=== PATIENT | female | born 1940 | race Asian ===

== ENCOUNTER 2017-07-07 15:13 | Emergency (ER) | payer MEDICARE, MEDICAID ==
[~2017-07-07] VITALS: Ht 154.9 cm; Wt 45.9 kg
[2017-07-07] MEDS ORDERED: VALS80TA2 PO (15:15)
[2017-07-07] MEDS ORDERED: ATOR40TA28 PO (15:15)
[2017-07-07] MEDS ORDERED: ASPI81TA39 PO (15:15)
[2017-07-07 16:20] VITALS: BP 156/91
== END 2017-07-07 17:56 | disposition home or self-care (01) ==
LOC: EMS 15:18
DX: S01.511A Laceration without foreign body of lip, initial encounter (principal); S16.1XXA Strain of muscle, fascia and tendon at neck level, initial encounter; S20.219A Contusion of unspecified front wall of thorax, initial encounter; E78.00 Pure hypercholesterolemia, unspecified; I10 Essential (primary) hypertension; V49.59XA Passenger injured in collision with other motor vehicles in traffic accident, initial encounter; Y93.89 Activity, other specified; Y92.89 Other specified places as the place of occurrence of the external cause; Y99.8 Other external cause status
CPT/HCPCS: 71120; 72040; 93005; 99284

== ENCOUNTER 2019-12-17 11:30 | Inpatient (IN) | payer MEDICARE, MEDICAID ==
[~2019-12-17] VITALS: Ht 157.5 cm; Wt 49.2 kg
[~2019-12-17 11:30] MED LIST: ASPI81TA39 PO; ATOR40TA28 PO; VALS80TA2 PO
[2019-12-17] MEDS ORDERED: AMLO5TAB9 PO (11:43)
[2019-12-17] MEDS ORDERED: SULF1TAB42 PO (11:43)
[2019-12-17 11:58] LABS: BASOPHILS % (AUTO) 0.3 % (0.0-2.0); EOSINOPHILS % (AUTO) 0.5 % (1.0-6.0); HEMATOCRIT 37.3 % (36-46); HEMOGLOBIN 12.9 g/dL (12.0-16.0); LYMPHOCYTES # (AUTO) 0.5 K/uL (1.0-4.8); LYMPHOCYTES % (AUTO) 8.5 % (22.0-44.0); MEAN CORPUSCULAR HEMOGLOBIN 29.7 pg (26.0-34.0); MEAN CORPUSCULAR HGB CONC 34.5 G/dL (31.0-37.0); MEAN CORPUSCULAR VOLUME 86 fL (80-100); MONOCYTES # (AUTO) 0.4 K/uL (0.1-1.0); MONOCYTES % (AUTO) 6.5 % (2.0-9.0); NEUTROPHILS # (AUTO) 5.1 K/uL (1.8-7.7); NEUTROPHILS % (AUTO) 84.2 % (40.0-70.0); PLATELET COUNT (AUTO) 289 K/uL (150-450); RED BLOOD CELL COUNT(AUTO) 4.33 MIL/uL (4.00-5.20); RED CELL DISTRIBUTION WIDTH 12.4 % (11.5-14.5)
[2019-12-17 12:14] LABS: ALBUMIN 3.7 g/dL (3.4-5.0); BILIRUBIN,TOTAL 0.2 mg/dL (0.1-1.0); CALCIUM, TOTAL 8.9 mg/dL (8.8-10.5); CREATININE 1.04 mg/dL (0.60-1.30); POTASSIUM 4.4 mmol/L (3.5-5.1); TOTAL PROTEIN, SERUM 8.3 g/dL (6.4-8.2)
[2019-12-17] MEDS ORDERED: SODIUM CHLORIDE 0.9% 1,000 ML ONE (12:29)
[2019-12-17] MEDS ORDERED: ACETAMINOPHEN 325 MG TABLET PO PRN ×2 (13:00→19:30)
[2019-12-17] MEDS ORDERED: ONDANSETRON HCL 4 MG/2 ML VIAL IVP PRN ×2 (13:00→19:30)
[2019-12-17] MEDS ORDERED: VALS160T2 PO (13:05)
[2019-12-17] MEDS ORDERED: ATOR20TA86 PO (13:05)
[2019-12-17] MEDS ORDERED: CARBXR100 PO (13:05)
[2019-12-17] MEDS ORDERED: SODIUM CHLORIDE 0.9% 1,000 ML IV ONE (13:15)
[2019-12-17 13:52] LABS: CALCIUM, TOTAL 8.8 mg/dL (8.8-10.5); CREATININE 0.96 mg/dL (0.60-1.30); POTASSIUM 5.9 mmol/L (3.5-5.1)
[2019-12-17 14:24] LABS: APPEARANCE,URINE CLEAR (CLEAR); BILIRUBIN,URINE NEGATIVE (NEGATIVE); GLUCOSE, URINE (UA) NEGATIVE (NEGATIVE); KETONES,URINE NEGATIVE (NEGATIVE); LEUKOCYTE ESTERASE ,URINE SMALL (NEGATIVE); NITRATE,URINE NEGATIVE (NEGATIVE); OCCULT BLOOD,URINE TRACE (NEGATIVE); PROTEIN,URINE NEGATIVE (NEGATIVE); UROBILINOGEN,URINE 0.2 mg/dL (<=1.0)
[2019-12-17 14:26] LABS: CREATININE,URINE RANDOM 22.3 mg/dL (30.0-125.0)
[2019-12-17 14:34] LABS: BACTERIA,URINE None Seen /HPF (None Seen); RBC,URINE 0-2 /HPF (0-2); SQUAMOUS EPITHELIAL CELL,UR Few /LPF (None Seen)
[2019-12-17] MEDS ORDERED: SODIUM CHLORIDE 3% 500 ML IV ONE (15:15)
[2019-12-17] MEDS ORDERED: SODIUM ZIRCONIUM CYCLOSILICATE 5 GM POWDER PACKET PO ONE (15:15)
[2019-12-17 16:00] VITALS: BP 151/75
[2019-12-17] MEDS ORDERED: INFLUENZA VIRUS VACCINE QVS 2019-20 (3YR+)/PF 60 MCG/0.5 ML SYRINGE IM ONE (17:45)
[2019-12-17] MEDS ORDERED: DEXTROSE 5%-0.45% SODIUM CHL 1,000 ML IV SCH (18:15)
[2019-12-17] MEDS ORDERED: 0.9% SODIUM CHLORIDE 10 ML SYRINGE IVP PRN (19:30)
[2019-12-17] MEDS: VALSARTAN 160 MG TABLET PO SCH (19:30)
[2019-12-17] MEDS ORDERED: MAGNESIUM HYDROXIDE SUSPENSION 30 ML UDCUP PO PRN (19:30)
[2019-12-17] MEDS ORDERED: OxyCODONE HCL/ACETAMINOPHEN 5-325 MG TABLET PO PRN ×2 (19:30)
[2019-12-17] MEDS: AmLODIPine BESYLATE 5 MG TABLET PO SCH (19:59)
[2019-12-17 20:00] VITALS: BP 140/74
[2019-12-17] MEDS: ASPIRIN 81 MG CHEWABLE TABLET PO SCH (20:00)
[2019-12-17] MEDS: ATORVASTATIN CALCIUM 20 MG TABLET PO SCH (20:00)
[2019-12-17] MEDS: CarBAMazepine 100 MG ER TABLET PO SCH (21:00)
[2019-12-17] MEDS: CefTRIAXone 1 GM/DEXTROSE 50 ML IV SCH (21:10)
[2019-12-17] MEDS: DOCUSATE SODIUM 100 MG CAPSULE PO SCH (21:10)
[2019-12-17] MEDS ORDERED: DEXTROSE 5%-WATER 1,000 ML IV SCH (21:45)
[2019-12-18] VITALS: BP 116/63
[2019-12-18 05:10] LABS: BASOPHILS % (AUTO) 0.7 % (0.0-2.0); EOSINOPHILS % (AUTO) 1.6 % (1.0-6.0); HEMATOCRIT 34.1 % (36-46); HEMOGLOBIN 11.3 g/dL (12.0-16.0); LYMPHOCYTES # (AUTO) 0.8 K/uL (1.0-4.8); LYMPHOCYTES % (AUTO) 16.6 % (22.0-44.0); MEAN CORPUSCULAR HEMOGLOBIN 29.1 pg (26.0-34.0); MEAN CORPUSCULAR HGB CONC 33.3 G/dL (31.0-37.0); MEAN CORPUSCULAR VOLUME 88 fL (80-100); MONOCYTES # (AUTO) 0.6 K/uL (0.1-1.0); MONOCYTES % (AUTO) 12.8 % (2.0-9.0); NEUTROPHILS # (AUTO) 3.3 K/uL (1.8-7.7); NEUTROPHILS % (AUTO) 68.3 % (40.0-70.0); PLATELET COUNT (AUTO) 271 K/uL (150-450); RED BLOOD CELL COUNT(AUTO) 3.89 MIL/uL (4.00-5.20); RED CELL DISTRIBUTION WIDTH 12.6 % (11.5-14.5)
[2019-12-18 05:23] LABS: CALCIUM, TOTAL 8.4 mg/dL (8.8-10.5); CREATININE 1.14 mg/dL (0.60-1.30); POTASSIUM 3.9 mmol/L (3.5-5.1)
[2019-12-18 08:00] VITALS: BP 116/72
[2019-12-18] MEDS: ATORVASTATIN CALCIUM 20 MG TABLET PO SCH (08:51)
[2019-12-18] MEDS: CarBAMazepine 100 MG ER TABLET PO SCH (08:51)
[2019-12-18] MEDS: ASPIRIN 81 MG CHEWABLE TABLET PO SCH (08:51)
[2019-12-18] MEDS: DOCUSATE SODIUM 100 MG CAPSULE PO SCH ×2 (08:51→20:32)
[2019-12-18] MEDS: AmLODIPine BESYLATE 5 MG TABLET PO SCH (08:52)
[2019-12-18] MEDS: VALSARTAN 160 MG TABLET PO SCH (09:00)
[2019-12-18] MEDS ORDERED: SODIUM CHLORIDE 0.45% 1,000 ML IV ONE (10:00)
[2019-12-18] MEDS ORDERED: DEXTROSE 5%-WATER 1,000 ML IV SCH (10:15)
[2019-12-18 12:00] VITALS: BP 111/62
[2019-12-18 16:00] VITALS: BP 110/66
[2019-12-18 20:00] VITALS: BP 115/62
[2019-12-18] MEDS ORDERED: SODIUM CHLORIDE 0.9% 1,000 ML IV SCH (20:00)
[2019-12-18] MEDS: CefTRIAXone 1 GM/DEXTROSE 50 ML IV SCH (20:32)
[2019-12-18 23:49] LABS: OSMOLALITY,URINE 203 mOS/kg (50-1200)
[2019-12-19] VITALS: BP 90/33
[2019-12-19 00:13] LABS: SODIUM,URINE RANDOM 28 mmol/l (20-110)
[2019-12-19 04:00] VITALS: BP 101/41
[2019-12-19 07:13] VITALS: BP 139/73
[2019-12-19] MEDS: CarBAMazepine 100 MG ER TABLET PO SCH ×2 (08:00→12:39)
[2019-12-19] MEDS: DOCUSATE SODIUM 100 MG CAPSULE PO SCH ×2 (09:15→21:32)
[2019-12-19] MEDS: ASPIRIN 81 MG CHEWABLE TABLET PO SCH (09:15)
[2019-12-19] MEDS: VALSARTAN 160 MG TABLET PO SCH (09:15)
[2019-12-19] MEDS: ATORVASTATIN CALCIUM 20 MG TABLET PO SCH (09:16)
[2019-12-19] MEDS: AmLODIPine BESYLATE 5 MG TABLET PO SCH (09:16)
[2019-12-19 11:47] VITALS: BP 126/66
[2019-12-19 16:30] VITALS: BP 145/72
[2019-12-19] MEDS ORDERED: SODIUM CHLORIDE 1 GM TABLET PO ONE (16:45)
[2019-12-19 20:30] VITALS: BP 136/87
[2019-12-19] MEDS: CefTRIAXone 1 GM/DEXTROSE 50 ML IV SCH (21:33)
[2019-12-20 00:21] VITALS: BP 121/65
[2019-12-20 05:32] VITALS: BP 129/66
[2019-12-20 07:19] VITALS: BP 130/77
[2019-12-20] MEDS: SODIUM CHLORIDE 1 GM TABLET PO SCH ×2 (08:37→16:46)
[2019-12-20] MEDS: VALSARTAN 160 MG TABLET PO SCH (08:37)
[2019-12-20] MEDS: DOCUSATE SODIUM 100 MG CAPSULE PO SCH (08:37)
[2019-12-20] MEDS: ATORVASTATIN CALCIUM 20 MG TABLET PO SCH (08:38)
[2019-12-20] MEDS: AmLODIPine BESYLATE 5 MG TABLET PO SCH (08:38)
[2019-12-20] MEDS: ASPIRIN 81 MG CHEWABLE TABLET PO SCH (08:38)
[2019-12-20 10:59] VITALS: BP 116/72
[2019-12-20 15:38] VITALS: BP 126/68
== END 2019-12-20 20:55 | disposition home or self-care (01) | DRG 640 ==
LOC: EMS 11:31 → ICU 15:34 → ICUN 12-18 19:15 → 5S 12-19 06:58
PROVIDERS: ADMIT Internal Medicine; ATTEND Internal Medicine
DX: E87.1 Hypo-osmolality and hyponatremia (principal); E43 Unspecified severe protein-calorie malnutrition; N39.0 Urinary tract infection, site not specified; Z68.1 Body mass index [BMI] 19.9 or less, adult; E87.6 Hypokalemia; E87.5 Hyperkalemia; E78.00 Pure hypercholesterolemia, unspecified; I10 Essential (primary) hypertension; E78.5 Hyperlipidemia, unspecified; R63.0 Anorexia; R53.83 Other fatigue; E86.9 Volume depletion, unspecified; Z87.442 Personal history of urinary calculi; Z80.1 Family history of malignant neoplasm of trachea, bronchus and lung; Z28.21 Immunization not carried out because of patient refusal
CPT/HCPCS: 76770; 82570; 83930; 83935; 84295; 84300; 87081; 87086; 93005; 96365; 97162; 97165; 97530; 97535; 99291; G0378; J0696; J7030; J7060

== ENCOUNTER 2024-04-24 09:18 | Emergency (ER) | payer OTHER, MEDICAID ==
[~2024-04-24] VITALS: Ht 157.5 cm; Wt 43.6 kg
[~2024-04-24 09:18] MED LIST changes: +AMLO-257 PO; +ATOR20TA PO; -ATOR40TA28 PO; +CARB100T60 PO; +SULF1TAB42 PO; +VALS160T2 PO; -VALS80TA2 PO
[2024-04-24 09:25] VITALS: BP 135/73; PULSE 86; RESP 16; TEMP 97.9
[2024-04-24] MEDS: METHOCARBAMOL 500 MG TABLET PO ONE (10:00)
[2024-04-24] MEDS: KETOROLAC TROMETHAMINE 30 MG/ML VIAL IM ONE (10:00)
[2024-04-24] MEDS: LIDOCAINE 5% TRANSDERMAL PATCH TD ONE (10:00)
[2024-04-24 10:03] LABS: APPEARANCE,URINE CLEAR (CLEAR); BILIRUBIN,URINE NEGATIVE (NEGATIVE); COLOR,URINE LIGHT YELLOW (YELLOW); GLUCOSE, URINE (UA) NEGATIVE (NEGATIVE); KETONES,URINE NEGATIVE (NEGATIVE); LEUKOCYTE ESTERASE ,URINE SMALL (NEGATIVE); NITRATE,URINE NEGATIVE (NEGATIVE); OCCULT BLOOD,URINE NEGATIVE (NEGATIVE); PH,URINE 6.5 (5.0-8.0); PROTEIN,URINE NEGATIVE (NEGATIVE); SPECIFIC GRAVITIY, URINE 1.012 (1.003-1.030); UROBILINOGEN,URINE <=1.0 mg/dL (<=1.0)
[2024-04-24 10:08] LABS: RBC,URINE None Seen /HPF (0-2)
[2024-04-24 10:09] LABS: BACTERIA,URINE Few /HPF (None Seen); RENAL EPITHELIAL CELLS,URINE Few /LPF (None Seen)
[2024-04-24 10:10] LABS: HYALINE CASTS, URINE 0-2 /LPF (None Seen); SQUAMOUS EPITHELIAL CELL,UR Rare /LPF (None Seen)
[2024-04-24] MEDS ORDERED: METH-659 PO (10:22)
[2024-04-24] MEDS ORDERED: IBUP-1492 PO (10:23)
[2024-04-24] MEDS ORDERED: LIDO700A15 TP (10:24)
[2024-04-25] MEDS ORDERED: MAGN250T9 PO (11:44)
[2024-04-25] MEDS ORDERED: FINE10TA PO (11:44)
[2024-04-25] MEDS ORDERED: ALLO100T PO (11:44)
[2024-04-25] MEDS ORDERED: ALEN70TA80 PO (12:15)
[2024-04-25] MEDS ORDERED: CHOL100062 PO (12:15)
[2024-04-25] MEDS ORDERED: GABA-1181 PO (12:15)
[2024-04-25] MEDS ORDERED: ASPI-1522 PO (12:15)
== END 2024-04-24 10:44 | disposition home or self-care (01) ==
LOC: EMS 09:18
DX: M53.3 Sacrococcygeal disorders, not elsewhere classified (principal); E78.00 Pure hypercholesterolemia, unspecified; I10 Essential (primary) hypertension
CPT/HCPCS: 99283; 81001; 96372; J1885

== ENCOUNTER 2024-04-25 07:10 | Inpatient (IN) | payer OTHER, MEDICAID ==
[~2024-04-25] VITALS: Ht 149.9 cm; Wt 40.5 kg
[~2024-04-25 07:10] MED LIST changes: +IBUP-1492 PO; +LIDO700A15 TP; +METH-659 PO
[2024-04-25] MEDS: ONDANSETRON HCL 4 MG/2 ML VIAL IVP ONE (07:58)
[2024-04-25] MEDS: SODIUM CHLORIDE 0.9% 1,000 ML IV ONE (07:58)
[2024-04-25 08:07] LABS: BASOPHILS % (AUTO) 0.1 % (0.0-2.0); EOSINOPHILS % (AUTO) 0.1 % (1.0-6.0); HEMATOCRIT 39.2 % (36-46); HEMOGLOBIN 13.3 g/dL (12.0-16.0); LYMPHOCYTES # (AUTO) 0.3 K/uL (1.0-4.8); LYMPHOCYTES % (AUTO) 5.2 % (22.0-44.0); MEAN CORPUSCULAR HEMOGLOBIN 29.6 pg (26.0-34.0); MEAN CORPUSCULAR HGB CONC 33.9 G/dL (31.0-37.0); MEAN CORPUSCULAR VOLUME 87 fL (80-100); MONOCYTES # (AUTO) 0.4 K/uL (0.1-1.0); MONOCYTES % (AUTO) 6.8 % (2.0-9.0); NEUTROPHILS # (AUTO) 5.6 K/uL (1.8-7.7); PLATELET COUNT (AUTO) 287 K/uL (150-450); RED BLOOD CELL COUNT(AUTO) 4.49 MIL/uL (4.00-5.20); WHITE BLOOD COUNT (AUTO) 6.3 K/uL (4.5-11.0)
[2024-04-25 08:13] LABS: CALCIUM, TOTAL 9.5 mg/dL (8.8-10.5); CREATININE 0.9 mg/dL (0.60-1.30); NEUTROPHILS % (AUTO) 87.8 % (40.0-70.0)
[2024-04-25 08:46] LABS: TROPONIN I-HIGH SENSITIVITY 13 ng/L (<51)
[2024-04-25 09:26] LABS: COVID AG,FIA SOURCE NASAL SWAB
[2024-04-25 09:47] LABS: SODIUM,URINE RANDOM 67 mmol/l (20-110)
[2024-04-25 09:55] LABS: SARS-COV2 (COVID) ANTIGEN,FIA Negative (Negative)
[2024-04-25 10:20] LABS: OSMOLALITY,URINE 318 mOsm/kg (50-1500)
[2024-04-25 11:17] LABS: ANION GAP 11 mmol/L (8-16); CALCIUM, TOTAL 9.2 mg/dL (8.8-10.5); CARBON DIOXIDE 22 mmol/L (22-29); CHLORIDE 81 mmol/L (98-107); CREATININE 0.89 mg/dL (0.60-1.30); GLOMERULAR FILTR. RATE CALC > 60 mL/min (>60); GLUCOSE,RANDOM 112 mg/dL (70-110); POTASSIUM 4.1 mmol/L (3.5-5.1); UREA NITROGEN, BLOOD 14 mg/dL (7-18)
[2024-04-25 11:32] LABS: SODIUM SERUM 114 mmol/L (136-145)
[2024-04-25] MEDS ORDERED: MAGN250T9 PO (11:44)
[2024-04-25] MEDS ORDERED: FINE10TA PO (11:44)
[2024-04-25] MEDS ORDERED: ALLO100T PO (11:44)
[2024-04-25] MEDS ORDERED: ALEN70TA80 PO (12:15)
[2024-04-25] MEDS ORDERED: CHOL100062 PO (12:15)
[2024-04-25] MEDS ORDERED: GABA-1181 PO (12:15)
[2024-04-25] MEDS ORDERED: ASPI-1522 PO (12:15)
[2024-04-25] MEDS: SODIUM CHLORIDE 3% 500 ML IV SCH (12:20)
[2024-04-25] MEDS: ACETAMINOPHEN 325 MG TABLET PO ONE (14:04)
[2024-04-25 14:13] LABS: APPEARANCE,URINE CLEAR (CLEAR); BILIRUBIN,URINE NEGATIVE (NEGATIVE); COLOR,URINE COLORLESS (YELLOW); GLUCOSE, URINE (UA) NEGATIVE (NEGATIVE); KETONES,URINE NEGATIVE (NEGATIVE); LEUKOCYTE ESTERASE ,URINE NEGATIVE (NEGATIVE); NITRATE,URINE NEGATIVE (NEGATIVE); OCCULT BLOOD,URINE NEGATIVE (NEGATIVE); PROTEIN,URINE NEGATIVE (NEGATIVE); SPECIFIC GRAVITIY, URINE 1.009 (1.003-1.030); UROBILINOGEN,URINE <=1.0 mg/dL (<=1.0)
[2024-04-25 14:24] LABS: BACTERIA,URINE None Seen /HPF (None Seen); RBC,URINE None Seen /HPF (0-2); SQUAMOUS EPITHELIAL CELL,UR None Seen /LPF (None Seen); WBC,URINE None Seen /HPF (0-5)
[2024-04-25] MEDS: CefTRIAXone 1 GM/DEXTROSE 50 ML IV SCH (19:37)
[2024-04-25] MEDS: MAGNESIUM OXIDE 400 MG TABLET PO SCH (20:07)
[2024-04-25 21:05] VITALS: BP 141/80; PULSE 74; RESP 18; TEMP 98.2
[2024-04-25 21:15] VITALS: PULSE 77
[2024-04-25 21:46] LABS: SODIUM,URINE RANDOM 19 mmol/l (20-110)
[2024-04-25 22:10] LABS: OSMOLALITY,URINE 213 mOsm/kg (50-1500)
[2024-04-25] MEDS: ETHYL ALCOHOL 62% ANTISEPTIC NASAL SANITIZER 0.6 ML AMPUL NASAL SCH (22:16)
[2024-04-25] MEDS: SODIUM CHLORIDE 3% 500 ML IV ONE (22:16)
[2024-04-25] MEDS: CarBAMazepine 100 MG ER TABLET PO SCH (23:36)
[2024-04-25] MEDS: METHOCARBAMOL 500 MG TABLET PO SCH (23:41)
[2024-04-26] VITALS: BP 145/75; PULSE 69; PULSE 74; RESP 17; TEMP 98
[2024-04-26 04:00] VITALS: BP 131/69; PULSE 81; RESP 17; TEMP 98.2
[2024-04-26 08:00] VITALS: BP 129/70; PULSE 78; RESP 22; TEMP 98.3
[2024-04-26] MEDS: ALLOPURINOL 100 MG TABLET PO SCH (08:08)
[2024-04-26] MEDS: AmLODIPine BESYLATE 5 MG TABLET PO SCH (08:09)
[2024-04-26] MEDS: ATORVASTATIN CALCIUM 20 MG TABLET PO SCH (08:09)
[2024-04-26] MEDS: CHOLECALCIFEROL (VIT D3) 1,000 UNITS [25 MCG] TABLET PO SCH (08:09)
[2024-04-26] MEDS: GABAPENTIN 300 MG CAPSULE PO SCH (08:09)
[2024-04-26] MEDS: ASPIRIN 81 MG DR TABLET PO SCH (08:09)
[2024-04-26] MEDS: VALSARTAN 160 MG TABLET PO SCH (08:09)
[2024-04-26 08:19] LABS: ANION GAP 10 mmol/L (8-16); CALCIUM, TOTAL 9.4 mg/dL (8.8-10.5); CARBON DIOXIDE 24 mmol/L (22-29); CHLORIDE 88 mmol/L (98-107); CREATININE 0.88 mg/dL (0.60-1.30); GLOMERULAR FILTR. RATE CALC > 60 mL/min (>60); GLUCOSE,RANDOM 93 mg/dL (70-110); PHOSPHORUS 3.8 mg/dL (2.5-4.9); POTASSIUM 4.1 mmol/L (3.5-5.1); UREA NITROGEN, BLOOD 22 mg/dL (7-18)
[2024-04-26 08:28] LABS: SODIUM SERUM 122 mmol/L (136-145)
[2024-04-26] MEDS: SODIUM CHLORIDE 3% 500 ML IV SCH (10:09)
[2024-04-26 12:00] VITALS: BP 128/75; PULSE 75; RESP 17; TEMP 98.4
[2024-04-26 16:00] VITALS: BP 102/54; PULSE 82; RESP 29; TEMP 98
[2024-04-26] MEDS ORDERED: DiphenhydrAMINE HCL 25 MG CAPSULE PO PRN (16:30)
[2024-04-26] MEDS: SODIUM CHLORIDE 3% 500 ML IV ONE (17:29)
[2024-04-26 20:00] VITALS: BP 118/68; PULSE 78; RESP 20; TEMP 98.4
[2024-04-26] MEDS ORDERED: SODIUM CHLORIDE 0.9% 250 ML IV ONE (20:14)
[2024-04-27] VITALS (7 sets, daily range): BP systolic 125–162; BP diastolic 31–96; PULSE 71–84; RESP 16–22; TEMP 97.8–98.7
[2024-04-27 05:59] LABS: BASOPHILS % (AUTO) 0.4 % (0.0-2.0); EOSINOPHILS % (AUTO) 0.7 % (1.0-6.0); HEMATOCRIT 37.3 % (36-46); HEMOGLOBIN 12.3 g/dL (12.0-16.0); LYMPHOCYTES # (AUTO) 0.6 K/uL (1.0-4.8); LYMPHOCYTES % (AUTO) 9.8 % (22.0-44.0); MEAN CORPUSCULAR HEMOGLOBIN 29.5 pg (26.0-34.0); MEAN CORPUSCULAR VOLUME 89 fL (80-100); MONOCYTES # (AUTO) 0.8 K/uL (0.1-1.0); NEUTROPHILS # (AUTO) 4.7 K/uL (1.8-7.7); NEUTROPHILS % (AUTO) 76.1 % (40.0-70.0); PLATELET COUNT (AUTO) 273 K/uL (150-450); RED BLOOD CELL COUNT(AUTO) 4.18 MIL/uL (4.00-5.20); RED CELL DISTRIBUTION WIDTH 13.1 % (11.5-14.5); WHITE BLOOD COUNT (AUTO) 6.2 K/uL (4.5-11.0)
[2024-04-27 06:12] LABS: ANION GAP 8 mmol/L (8-16); CALCIUM, TOTAL 8.8 mg/dL (8.8-10.5); CARBON DIOXIDE 27 mmol/L (22-29); CHLORIDE 94 mmol/L (98-107); CREATININE 0.86 mg/dL (0.60-1.30); GLOMERULAR FILTR. RATE CALC > 60 mL/min (>60); GLUCOSE,RANDOM 98 mg/dL (70-110); POTASSIUM 3.9 mmol/L (3.5-5.1); SODIUM SERUM 129 mmol/L (136-145); UREA NITROGEN, BLOOD 21 mg/dL (7-18)
[2024-04-27] MEDS: SODIUM CHLORIDE 1 GM TABLET PO SCH (08:56)
[2024-04-27] MEDS: VANCOMYCIN 500 MG/WATER(PEG) 100 ML IV ONE (13:36)
[2024-04-27] MEDS ORDERED: OxyCODONE HCL/ACETAMINOPHEN 5-325 MG TABLET PO PRN (14:30)
[2024-04-27] MEDS ORDERED: MAGNESIUM HYDROXIDE SUSPENSION 30 ML UDCUP PO PRN (14:30)
[2024-04-27] MEDS ORDERED: IPRATROPIUM BROMIDE 0.5 MG/2.5 ML NEB SOLUTION NEB PRN (14:30)
[2024-04-27] MEDS ORDERED: ZOLPIDEM TARTRATE 5 MG TABLET PO PRN (14:30)
[2024-04-27] MEDS ORDERED: BISACODYL 10 MG RECTAL RECTAL SUPPOSITORY PR PRN (14:30)
[2024-04-27] MEDS ORDERED: ONDANSETRON HCL 4 MG/2 ML VIAL IVP PRN (14:30)
[2024-04-27] MEDS ORDERED: MORPHINE SULFATE 2 MG/ML SYRINGE IVP PRN (14:30)
[2024-04-27] MEDS ORDERED: ALBUTEROL SULFATE 2.5 MG/0.5 ML NEB SOLUTION NEB PRN (14:30)
[2024-04-27] MEDS: HEPARIN SODIUM,PORCINE 5,000 UNITS/ML VIAL SQ SCH (17:15)
[2024-04-27] MEDS ORDERED: VANCOMYCIN 500 MG/WATER(PEG) 100 ML IV SCH (20:00)
[2024-04-28 06:39] LABS: ANION GAP 7 mmol/L (8-16); CALCIUM, TOTAL 8.9 mg/dL (8.8-10.5); CARBON DIOXIDE 25 mmol/L (22-29); CHLORIDE 93 mmol/L (98-107); CREATININE 0.72 mg/dL (0.60-1.30); GLOMERULAR FILTR. RATE CALC > 60 mL/min (>60); GLUCOSE,RANDOM 99 mg/dL (70-110); POTASSIUM 4.1 mmol/L (3.5-5.1); SODIUM SERUM 125 mmol/L (136-145); UREA NITROGEN, BLOOD 19 mg/dL (7-18)
[2024-04-28 08:00] VITALS: BP 138/69; PULSE 70; RESP 16; TEMP 98.3
[2024-04-28] MEDS: DOCUSATE SODIUM 100 MG/10 ML LIQUID UDCUP PO SCH (08:14)
[2024-04-28] MEDS: PANTOPRAZOLE SODIUM 40 MG DR TABLET PO SCH (08:17)
[2024-04-28] MEDS: VANCOMYCIN 500 MG/WATER(PEG) 100 ML IV SCH (08:24)
[2024-04-28] MEDS ORDERED: SODIUM CHLORIDE 0.9% 250 ML IV ONE (08:26)
[2024-04-28] MEDS: POLYETHYLENE GLYCOL 3350 17 GM PACKET PO SCH (12:30)
[2024-04-28] MEDS: SODIUM CHLORIDE 1 GM TABLET PO SCH (12:31)
[2024-04-28] MEDS: SENNOSIDES 8.8 MG/5 ML SYRUP UDCUP PO ONE (12:32)
[2024-04-28 15:32] VITALS: BP 142/70; PULSE 77; RESP 18; TEMP 98.2
[2024-04-28] MEDS: ACETAMINOPHEN 500 MG TABLET PO SCH (17:04)
[2024-04-28] MEDS: LIDOCAINE 5% TRANSDERMAL PATCH TD SCH (17:05)
[2024-04-28 17:26] LABS: CALCIUM, TOTAL 8.6 mg/dL (8.8-10.5); CREATININE 1.35 mg/dL (0.60-1.30)
[2024-04-28 19:54] VITALS: BP 115/61; PULSE 85; RESP 18; TEMP 98.6
[2024-04-28] MEDS ORDERED: SODIUM CHLORIDE 0.9% 500 ML IV ONE (20:44)
[2024-04-29] MEDS: -LIDODERM PATCH NOTE- MISC SCH (01:00)
[2024-04-29 05:04] VITALS: BP 141/78; PULSE 81; RESP 20; TEMP 98.3
[2024-04-29 06:41] LABS: EOSINOPHILS % (AUTO) 2.6 % (1.0-6.0); HEMATOCRIT 35.6 % (36-46); HEMOGLOBIN 11.9 g/dL (12.0-16.0); LYMPHOCYTES # (AUTO) 0.6 K/uL (1.0-4.8); LYMPHOCYTES % (AUTO) 11.8 % (22.0-44.0); MEAN CORPUSCULAR HEMOGLOBIN 29.4 pg (26.0-34.0); MEAN CORPUSCULAR HGB CONC 33.3 G/dL (31.0-37.0); MEAN CORPUSCULAR VOLUME 89 fL (80-100); MONOCYTES # (AUTO) 0.5 K/uL (0.1-1.0); MONOCYTES % (AUTO) 9.7 % (2.0-9.0); NEUTROPHILS # (AUTO) 4.1 K/uL (1.8-7.7); NEUTROPHILS % (AUTO) 74.9 % (40.0-70.0); PLATELET COUNT (AUTO) 323 K/uL (150-450); RED BLOOD CELL COUNT(AUTO) 4.03 MIL/uL (4.00-5.20); RED CELL DISTRIBUTION WIDTH 13.1 % (11.5-14.5); WHITE BLOOD COUNT (AUTO) 5.4 K/uL (4.5-11.0)
[2024-04-29 06:58] LABS: ANION GAP 7 mmol/L (8-16); CARBON DIOXIDE 28 mmol/L (22-29); CHLORIDE 96 mmol/L (98-107); CREATININE 0.87 mg/dL (0.60-1.30); GLOMERULAR FILTR. RATE CALC > 60 mL/min (>60); GLUCOSE,RANDOM 104 mg/dL (70-110); PHOSPHORUS 3.2 mg/dL (2.5-4.9); SODIUM SERUM 131 mmol/L (136-145); UREA NITROGEN, BLOOD 26 mg/dL (7-18); VANCOMYCIN,RANDOM 10.7 mcg/mL (25.0-50.0)
[2024-04-29 08:52] VITALS: BP 142/75; PULSE 74; RESP 20; TEMP 98.2
[2024-04-29] MEDS ORDERED: CEPH-558 PO (10:34)
[2024-04-29] MEDS ORDERED: ACET-3385 PO (10:34)
[2024-04-29] MEDS ORDERED: SODI100067 PO (10:34)
[2024-04-29] MEDS ORDERED: GADOTERATE MEGLUMINE 10 MMOL/20 ML VIAL IVP ONE (13:39)
[2024-04-29 16:06] VITALS: BP 129/72; PULSE 79; RESP 20; TEMP 98.5
[2024-04-29] MEDS: LIDOCAINE 5% TRANSDERMAL PATCH TD SCH (16:34)
[2024-04-29 19:57] VITALS: BP 114/58; PULSE 79; RESP 18; TEMP 97.9
[2024-04-30 03:54] VITALS: BP 134/71; PULSE 75; RESP 20; TEMP 98
[2024-04-30 06:59] LABS: ANION GAP 7 mmol/L (8-16); CALCIUM, TOTAL 8.8 mg/dL (8.8-10.5); CARBON DIOXIDE 27 mmol/L (22-29); CHLORIDE 98 mmol/L (98-107); CREATININE 0.75 mg/dL (0.60-1.30); GLOMERULAR FILTR. RATE CALC > 60 mL/min (>60); GLUCOSE,RANDOM 99 mg/dL (70-110); POTASSIUM 3.8 mmol/L (3.5-5.1); SODIUM SERUM 132 mmol/L (136-145); UREA NITROGEN, BLOOD 15 mg/dL (7-18); VANCOMYCIN,RANDOM 13.6 mcg/mL (25.0-50.0)
[2024-04-30 08:06] VITALS: BP 151/79; PULSE 75; RESP 20; TEMP 98.4
[2024-04-30 08:09] VITALS: BP 151/79; PULSE 75; RESP 20; TEMP 98.4
[2024-04-30 12:06] LABS: ALANINE AMINOTRANSFERASE 26 U/L (12-78); ALBUMIN 3.2 g/dL (3.4-5.0); ALKALINE PHOSPHATASE 80 U/L (46-116); ASPARTATE AMINOTRANSFERASE 26 U/L (15-37); BILIRUBIN,TOTAL 0.3 mg/dL (0.1-1.0); TOTAL PROTEIN, SERUM 7.1 g/dL (6.4-8.2)
[2024-04-30 15:33] VITALS: BP 110/57; PULSE 75; RESP 18; TEMP 97.7
[2024-04-30] MEDS: ACETAMINOPHEN 325 MG TABLET PO PRN (16:18)
[2024-04-30 20:08] VITALS: BP 124/69; PULSE 86; RESP 18; TEMP 98.2
[2024-05-01 05:56] VITALS: BP 137/78; PULSE 68; RESP 20; TEMP 98.3
[2024-05-01 07:06] LABS: ANION GAP 4 mmol/L (8-16); CALCIUM, TOTAL 8.8 mg/dL (8.8-10.5); CARBON DIOXIDE 28 mmol/L (22-29); CHLORIDE 99 mmol/L (98-107); CREATININE 0.79 mg/dL (0.60-1.30); GLOMERULAR FILTR. RATE CALC > 60 mL/min (>60); GLUCOSE,RANDOM 100 mg/dL (70-110); POTASSIUM 3.9 mmol/L (3.5-5.1); SODIUM SERUM 131 mmol/L (136-145); UREA NITROGEN, BLOOD 20 mg/dL (7-18)
[2024-05-01 07:41] VITALS: BP 142/81; PULSE 66; RESP 18; TEMP 98
[2024-05-01 15:18] VITALS: BP 134/68; PULSE 82; RESP 20; TEMP 98.3
[2024-05-01 19:51] VITALS: BP 137/75; PULSE 82; RESP 20; TEMP 98.3
[2024-05-02 04:44] VITALS: BP 151/85; PULSE 73; RESP 20; TEMP 98.4
[2024-05-02 07:46] VITALS: BP 138/84; PULSE 74; RESP 20; TEMP 98.2
[2024-05-02 08:03] LABS: ANION GAP 9 mmol/L (8-16); CALCIUM, TOTAL 8.5 mg/dL (8.8-10.5); CARBON DIOXIDE 28 mmol/L (22-29); CHLORIDE 99 mmol/L (98-107); CREATININE 0.77 mg/dL (0.60-1.30); GLOMERULAR FILTR. RATE CALC > 60 mL/min (>60); GLUCOSE,RANDOM 96 mg/dL (70-110); POTASSIUM 3.6 mmol/L (3.5-5.1); SODIUM SERUM 136 mmol/L (136-145); UREA NITROGEN, BLOOD 16 mg/dL (7-18); VANCOMYCIN,RANDOM 14.7 mcg/mL (25.0-50.0)
== END 2024-05-02 16:00 | disposition home or self-care (01) | DRG 643 ==
LOC: EMS 07:11 → EDH 11:16 → EDBEDREQ 11:52 → ICU 21:05 → 6N 04-27 23:30 → 6S 04-28 00:08 → 4E 04-28 19:00
PROVIDERS: ADMIT Hospitalist; ATTEND Hospitalist
DX: E22.2 Syndrome of inappropriate secretion of antidiuretic hormone (principal); E43 Unspecified severe protein-calorie malnutrition; R78.81 Bacteremia; Z68.1 Body mass index [BMI] 19.9 or less, adult; Z20.822 Contact with and (suspected) exposure to COVID-19; M10.9 Gout, unspecified; M26.609 Unspecified temporomandibular joint disorder, unspecified side; I10 Essential (primary) hypertension; N20.0 Calculus of kidney; B96.89 Other specified bacterial agents as the cause of diseases classified elsewhere; E78.00 Pure hypercholesterolemia, unspecified; M54.32 Sciatica, left side; Z79.899 Other long term (current) drug therapy; Z79.82 Long term (current) use of aspirin; Z87.442 Personal history of urinary calculi
CPT/HCPCS: 71045; 72158; 76770; 80048; 80076; 80202; 81001; 82271; 82533; 83735; 83880; 83930; 83935; 84100; 84295; 84300; 84443; 84484; 85025; 87040; 87077; 87081; 87205; 87481; 93005; 93306; 93970; 97116; 97163; 97166; 97530; 97535; 99285; G0378; J0696; J1644; J2405; J7030; J7040; J7050; 36415-L1; 36415-TC